=== PATIENT | female | born 1945 | race Caucasian/White ===

== ENCOUNTER 2020-08-28 02:34 | Outpatient (CLI) | payer MEDICARE, SELFPAY ==
[2020-08-28 12:29] LABS: Anion Gap 9.1 mmol/L (3-11); BUN 15 mg/dL (7-18); CO2 27.9 mmol/L (21.0-32.0); CREATININE 0.9 mg/dL (0.55-1.02); Calcium 9.2 mg/dL (8.5-10.1); Chloride 106 mmol/L (98-107); Glucose 120 mg/dL (74-106); Sodium 143 mmol/L (136-145)
== END 2020-08-28 02:35 | disposition home or self-care (01) ==
LOC: LOS 02:34
PROVIDERS: Visit Provider Internal Medicine Cardiovascular Disease
DX: E78.5 Hyperlipidemia, unspecified (principal); I35.0 Nonrheumatic aortic (valve) stenosis; I10 Essential (primary) hypertension; Z95.2 Presence of prosthetic heart valve
CPT/HCPCS: 36415; 80048

== ENCOUNTER 2021-08-28 01:41 | Outpatient (CLI) | payer MEDICARE, SELFPAY ==
[2021-08-28 13:24] LABS: FREE T4 1.49 ng/dL (0.76-1.46)
== END 2021-08-28 01:42 | disposition home or self-care (01) ==
LOC: LOS 01:42
DX: E03.9 Hypothyroidism, unspecified (principal)
CPT/HCPCS: 36415; 84439